=== PATIENT | male | born 1960 | race Caucasian/White ===

== ENCOUNTER → 2019-07-06 | Outpatient (CLI) | payer BC ==
[~2019-07-06] MED LIST: ASPIRIN 32325 MG/TAB PO; BLOOD PRESSURE MED; CHOLESTEROL MED; ZESTRIL 10MG10 MG PO; ZOCOR 20MG20 MG PO
== END ==
LOC: COL.RAD 12:30
DX: N50.89 Other specified disorders of the male genital organs (principal); N43.3 Hydrocele, unspecified